=== PATIENT | female | born 1980 | race American Indian/Alaskan Native ===

== ENCOUNTER 2019-02-13 14:52 | Outpatient (CLI) | payer OTHER | END 2019-02-13 14:53 | disposition home or self-care (01) | LOC: LABHHL 14:52 | PROVIDERS: ATTEND Surgery | DX: N63.11 Unspecified lump in the right breast, upper outer quadrant (principal) | CPT/HCPCS: 88305 ==

== ENCOUNTER 2019-04-19 06:02 | Day surgery (SDC) | payer OTHER ==
[~2019-04-19 06:02] MED LIST: ANCEF/STERILE WATER 2 GM/20 ML 2 GM/20 ML SYRINGE IV NR
[2019-04-19] MEDS ORDERED: ZOFRAN IV PRN (07:34)
[2019-04-19] MEDS ORDERED: DILAUDID IV PRN (07:34)
--- NOTE | 2019-04-19 07:34 | Anesthesia Day of Surgery ---
Anesthesia Day of Surgery - Day of Surgery Patient Examined: Yes Patient H&P Reviewed: Yes Patient is NPO: Yes
--- NOTE | 2019-04-19 07:34 | Anesthesia Consultation ---
Anesthesia Consult and Med Hx Date of service: 04/19/19 - Airway Anesthetic Teeth Evaluation: Chipped ROM Head & Neck: Adequate Mental/Hyoid Distance: Adequate Mallampati Class: Class II Intubation Access Assessment: Good - Pulmonary Exam CTA: Yes - Cardiac Exam Cardiac Exam: RRR - Pre-Operative Health Status ASA Pre-Surgery Classification: ASA2 Proposed Anesthetic Plan: General - Pulmonary Hx Smoking: No - Cardiovascular System Hx Hypertension: No - Central Nervous System Hx Psychiatric Problems: No - Other Systems Hx Alcohol Use: Yes
[2019-04-19] MEDS ORDERED: XYLOCAINE 1% 20 mL INFILTRATI NR (07:40)
[2019-04-19] MEDS ORDERED: XYLOCAINE 1% 20 mL ONE (07:40)
[2019-04-19] MEDS ORDERED: LACTATED RINGERS 1,000 ML ONE (08:08)
[2019-04-19] MEDS ORDERED: LACTATED RINGERS 1,000 ML IV SCH (09:00)
[2019-04-19] MEDS ORDERED: MARCAINE 0.25% INFILTRATI ONE ×2 (09:03→11:11)
[2019-04-19] MEDS ORDERED: SUBLIMAZE ONE (09:07)
[2019-04-19] MEDS ORDERED: DIPRIVAN 10 MG/ML IV ONE (09:07)
[2019-04-19] MEDS ORDERED: DECADRON ONE (09:08)
[2019-04-19] MEDS ORDERED: XYLOCAINE MPF 2% ONE (09:08)
[2019-04-19] MEDS ORDERED: ZOFRAN ONE (09:08)
--- NOTE | 2019-04-19 09:37 | Mammography Report ---
NEEDLE LOCALIZATION AND HOOKWIRE PLACEMENT RIGHT BREAST:04/19/19 CLINICAL: Abnormal needle biopsy. COMPARISON: 02/13/19 FINDINGS: Using mammographic guidance, 1% lidocaine local anesthesia and sterile technique, a 3.5-cm Arnold needle with a hookwire was placed from a medial approach to localize a retroareolar biopsy clip. The hookwire was deployed and the needle was removed. Satisfactory placement was confirmed by orthogonal views. The patient tolerated the procedure well and there were no apparent complications. IMPRESSION: Uncomplicated hookwire placement right breast.
--- NOTE | 2019-04-19 11:03 | Short Stay Summary ---
Short Stay Documentation Date of service: 04/19/19 - History H&P: obtained from office - Allergies and Medications Current Medications: Allergies No Known Allergies Allergy (Verified 04/18/19 11:38) Home Medications Medication Instructions Recorded Confirmed Last Taken Type Biotin [Biotin 5,000 rapdis] 2,500 mcg PO DAILY 04/18/19 04/18/19 Unknown History HYDROcodone/APAP 5-325 [[place] 1 each PO Q6HR PRN #20 tablet 04/19/19 Unknown Rx 5/325] Active Medications Hydromorphone HCl (Dilaudid) 0.5 mg IV Q10MIN PRN PRN Reason: Pain , Severe (7-10) Stop: 04/19/19 20:00 Cefazolin Sodium (Ancef/Sterile Water 2 Gm/20 Ml) 2 gm in 20 mls @ 80 mls/hr IV PREOP NR; Protocol Stop: 04/19/19 20:00 Lactated Ringer's (Lactated Ringers) 1,000 mls @ 75 mls/hr IV DIRECT GRISEL Last Admin: 04/19/19 08:18 Dose: 75 mls/hr Documented by: Lidocaine (Xylocaine 1% 20 Ml) 20 ml INFILTRATI ONCE NR Stop: 04/19/19 16:00 Ondansetron HCl (Zofran) 4 mg IV ONCE PRN PRN Reason: Nausea And Vomiting Stop: 04/19/19 16:00 - Brief post op/procedure progress note Date of procedure: 04/19/19 Pre-op diagnosis: Left intraductal papilloma Post-op diagnosis: same Procedure: Left breast mass-papilloma excisional biopsy and resection of surrounding ducts Anesthesia: GETA Findings: Left papilloma and clip present Surgeon: STEPHON SANTILLAN Estimated blood loss: minimal Pathology: list (left breast mass) Specimen disposition: to lab Condition: stable - Disposition Condition at discharge: Good Disposition: - TO HOME OR SELFCARE Short Stay Discharge Plan Activity: other (no heavy lifting) Diet: regular Wound: keep clean and dry (may shower in 48 hours; no baths, pools or lakes; do not rub or scrub incision; wear breast binder) Follow up with: LLOYD SALEH MD [Primary Care Provider] - 7 Days STEPHON SANTILLAN MD [Staff Physician] - 7 Days Prescriptions: HYDROcodone/APAP 5-325 [[place] 5/325] 1 each PO Q6HR PRN #20 tablet PRN Reason: Pain
[2019-04-19] MEDS ORDERED: XYLOCAINE 1% 20 mL INFILTRATI ONE (11:12)
[2019-04-19] MEDS ORDERED: WATER FOR IRRIG STERILE IR ONE (11:12)
--- NOTE | 2019-04-19 11:13 | Operative Report ---
Operative Report Operative Report: Operative Report: Date of procedure:04/19/2019 Pre-operative diagnosis: Left breast intraductal papilloma Post-operative diagnosis:Same Procedure name(s): Left breast papilloma and surrounding ducts excisional biopsy Surgeon: Clau Do M.D. Anesthesia: General EBL: Minimal Findings: Left nipple breast mass and clip present within radiograph specimen Drains: None Complication: None Disposition: PACU in good condition Indications: This is a 38 year old lady with recent left breast clear spontaneous nipple discharge. Ultrasound guided needle core biopsy performed of lesion at the 12:00 SA and findings of an intraductal papilloma. Recommend excision to rule out malignancy. Patient also high risk for breast cancer given family history. Patient wished to proceed with the above procedure. Procedure: Patient had left wire localization at area of prior left breast biopsy of papilloma. Patient was taken to the operating room and positioned supine on the operating table. General anesthesia was administered. Left breast was prepped and draped in the normal sterile operative fashion. Ultrasound was used to identify the area of biopsy clip. A left periareola incision was made at the areola skin margin and the areola flap was elevated exposing the underlying ducts. The wire was removed from the skin located at the 3:00 position. Dissection was taken down posteriorly and flaps raised superiorly, laterally, medially, and inferiorly. The area of concern was grasped with Rachna clamps and then removed with the aid of the bovie cautery. Dissection was carried underneath the nipple taking care not to render the nipple ischemic. Dissection was carried down to include adjacent terminal ducts for approximately 3 cm distal to the nipple area itself encompassing known papilloma with clip and wire present. The specimen was marked and then sent to radiology with wire and clip present and then to pathology. Hemostasis was achieved using the electrocautery. The breast cavity was irrigated and hemostasis was noted. Deep sutures were placed to approximate the deep tissues using interrupted 3-0 Vicryl. The skin was then closed using subcuticular sutures usinng a running 4-0 monocryl followed by dermabond. The patient tolerated surgery very well and was awaken from anesthesia and then transported to PACU in good condition.
[2019-04-19] MEDS ORDERED: NORCO 5/325 PO PRN (11:22)
--- NOTE | 2019-04-19 11:36 | Mammography Report ---
SPECIMEN RADIOGRAPH RIGHT BREAST: 04/19/19 06:02:00 CLINICAL: Surgical excision of a papilloma. FINDINGS: The targeted localizer clip and a 4 mm partially circumscribed mass with an adjacent hookwire are identified within the specimen. IMPRESSION: Excision of the targeted lesion.
[2019-04-19 12:01] VITALS: BP 116/69
--- NOTE | 2019-04-19 13:41 | Post Anesthesia Evaluation ---
- Post Anesthesia Evaluation Patient Participated: Yes Airway Patent: Yes Stable Respiratory Function: Yes Nausea/Vomiting: No Temp > 96.8F: Yes Pain Manageable: Yes Adequeate Hydration: Yes Anesthesia Complications: No Block Receding Appropriately: Not Applicable Patient on Ventilator: No
== END 2019-04-19 13:00 | disposition home or self-care (01) ==
LOC: OR 06:02
PROVIDERS: ATTEND Surgery
DX: D24.2 Benign neoplasm of left breast (principal); Z79.899 Other long term (current) drug therapy; Z98.891 History of uterine scar from previous surgery; Z72.89 Other problems related to lifestyle; Z80.3 Family history of malignant neoplasm of breast; Z98.890 Other specified postprocedural states
CPT/HCPCS: 19125; 19281; 76098; 88307; J0690; J1100; J1170; J2405; J2704; J3010; J7120